=== PATIENT | female | born 1950 | race Caucasian/White ===

== ENCOUNTER → 2018-10-01 | Outpatient (CLI) | payer MEDICARE, OTHER ==
[2018-10-01 16:40] LABS: Blood Urea Nitrogen 12 mg/dL (7-17)
--- NOTE | 2018-10-02 03:13 | CT ---
EXAMINATION TYPE: CT angio chest DATE OF EXAM: 10/01/2018 COMPARISON: NONE HISTORY: aortic aneurysm CT DLP: 180.1 mGycm. Automated Exposure Control for Dose Reduction was Utilized. CONTRAST: CTA scan of the thorax is performed with IV Contrast, patient injected with 100 mL of Isovue 370, pul monary embolism protocol. 3-D reconstructed Images are created on independent workstation and reviewe d. FINDINGS: LUNGS: Background Moderate emphysematous changes present most prominent in the lung apices. There is 2.2 x 1.7 cm focus of groundglass opacity anterior inferior right upper lobe axial image 26. Correlat e clinically for possible focal pneumonia. There is slightly elevated left hemidiaphragm with left ba silar linear scarring and/or atelectasis. No pleural effusion or pneumothorax is seen bilaterally. MEDIASTINUM: Ascending aorta measures up to 3.8 cm near level of pulmonary bifurcation axial image 25 . There is normal 3 vessel origin from the aortic arch. Descending thoracic aorta measures 3.1 cm tra nsversely X image 19 with gradual tapering. There is mild peripheral plaque in the arch and descendin g aorta.. There are no greater than 1 cm hilar or mediastinal lymph nodes. No or pericardial effus ion is seen. Heart size is mildly enlarged. Left ventricle is mildly dilated. OTHER: There is partial visualization of bilateral renal calculi measuring nearly up to 1 cm in size. IMPRESSION: Ascending aortic aneurysm up to 3.8 cm. Other findings as noted above.
== END ==
LOC: RADCTMAIN 15:48
PROVIDERS: ATTEND Internal Medicine Cardiovascular Disease
DX: I71.2 Thoracic aortic aneurysm, without rupture (principal); Z88.1 Allergy status to other antibiotic agents; Z88.5 Allergy status to narcotic agent; Z88.8 Allergy status to other drugs, medicaments and biological substances
CPT/HCPCS: 82565; 84520; 71275; 36415; Q9967

== ENCOUNTER → 2019-03-20 | Outpatient (CLI) | payer MEDICARE, OTHER ==
--- NOTE | 2019-03-20 15:54 | XR ---
EXAMINATION TYPE: XR KUB DATE OF EXAM: 03/20/2019 2:43 PM CLINICAL HISTORY: Right lower quadrant and flank pain. TECHNIQUE: Single supine KUB image of the abdomen is obtained. COMPARISON: None. FINDINGS: No dilated large or small bowel seen. Gaseous distention of small bowel measures up to 2.5 cm, within normal limits. Right renal calculi are seen measuring up to 8 mm. There are approximately 6 right renal calculi. Left renal shadow is obscured by stool. Surgical sutures are seen in the left hemipelvis. Mild levoscoliosis of the lumbar spine and moderate degenerative changes of the osseous s tructures are seen. IMPRESSION: Right-sided nephrolithiasis with at least 6 calculi measuring up to 8 mm. Left renal shad ow is obscured by bowel gas and stool. No suspicious calculi along the courses of the ureters.
== END | disposition home or self-care (01) ==
LOC: RADXRMAIN 14:29
PROVIDERS: ATTEND Urology
DX: N20.0 Calculus of kidney (principal)
CPT/HCPCS: 74018

== ENCOUNTER → 2019-05-22 | Outpatient (CLI) | payer MEDICARE, OTHER ==
[2019-05-22 09:23] LABS: African American GFR (CKD) >90 (>60 ml/min/1.73 sqM); Blood Urea Nitrogen 12 mg/dL (7-17)
--- NOTE | 2019-05-22 11:08 | CT ---
EXAMINATION TYPE: CT angio chest DATE OF EXAM: 05/22/2019 COMPARISON: CTA chest October 01, 2018. HISTORY: Follow up aneurysm CT DLP: 177.7 mGycm. Automated Exposure Control for Dose Reduction was Utilized. CONTRAST: CTA scan of the thorax is performed with IV Contrast, patient injected with 100 mL of Isovue 370, pul monary embolism protocol. Three-D reconstructed images are created on a independent workstation and r eviewed. FINDINGS: LUNGS: Mild to moderate underlying emphysematous changes redemonstrated most prominent bilateral uppe r lobes. Focus of groundglass opacity inferior lateral right upper lobe measures 2.2 x 1.9 cm axial i mage 24 shows no significant change from prior study favoring postinflammatory scar given interval st ability. No new nodules or masses. Left lung remains clear. No pleural effusion or pneumothorax. MEDIASTINUM: There is satisfactory enhancement of the pulmonary artery and its branches, there is no CT evidence for pulmonary embolism. Enlarged right and left pulmonary arteries are redemonstrated, CT findings suggesting underlying pulmonary hypertension. For reference right pulmonary artery measures 2.6 cm diameter axial image 27. Adjacent ascending aorta measures up to 3.9 cm in diameter axial elliott ge 26 are significantly changed from prior. Aorta measures similarly 3.9 cm coronal image 12. Descend ing thoracic aorta measures up to 3.1 cm in diameter transversely axial image 19 not significantly ch anged from prior. There are no greater than 1 cm hilar or mediastinal lymph nodes. No pericardial e ffusion is seen. There is actually bovine type arch which is normal variant. Heart size is stable mil dly enlarged. OTHER: Subcentimeter hypodense focus anterior left hepatic lobe axial image 51 reversed thin-walled c yst as it is stable. Right-sided renal calculi are partially imaged on current study. IMPRESSION: Stable (accounting for technical differences) ascending aortic aneurysm up to 3.9 cm on c urrent study.
== END | disposition home or self-care (01) ==
LOC: RADCTMAIN 08:35
PROVIDERS: ATTEND Internal Medicine Cardiovascular Disease
DX: I71.2 Thoracic aortic aneurysm, without rupture (principal)
CPT/HCPCS: 82565; 84520; 71275; 36415; Q9967

== ENCOUNTER → 2019-06-10 | Outpatient (CLI) | payer MEDICARE, OTHER ==
--- NOTE | 2019-06-11 11:33 | XR ---
EXAMINATION TYPE: XR KUB DATE OF EXAM: 06/10/2019 COMPARISON: 03/20/2019 INDICATION: N 20.0, and N20.1 TECHNIQUE: Single view abdomen FINDINGS: There is a normal bowel gas pattern. Psoas margins are normal. No organomegaly is present. There are multiple calcifications overlying the kidneys. The larger on the right measures 0.8 cm. The larger on the left measures 0.4 cm. Postsurgical changes are within the left hemipelvis. IMPRESSION: 1. Bilateral renal calcifications.
== END | disposition home or self-care (01) ==
LOC: RADXRMAIN 17:07
PROVIDERS: ATTEND Urology
DX: N28.89 Other specified disorders of kidney and ureter (principal)
CPT/HCPCS: 74018

== ENCOUNTER → 2021-11-04 | Outpatient (CLI) | payer MEDICARE, OTHER ==
[2021-11-04 12:28] LABS: African American GFR (CKD) >90 (>60 ml/min/1.73 sqM); Blood Urea Nitrogen 12 mg/dL (7-17); Non-African American GFR(CKD) 82 (>60 ml/min/1.73 sqM)
--- NOTE | 2021-11-04 13:51 | CT ---
EXAMINATION TYPE: CT chest w con DATE OF EXAM: 11/04/2021 COMPARISON: HISTORY: Aneurysm, prior scans CT DLP: 368 mGycm Automated exposure control for dose reduction was used. TECHNIQUE: CT scan of the chest is performed with IV Contrast, patient injected with 100ml mL of Isovue 300. PA P Images are created on CT scanner and reviewed. 3D reconstructed images are created on an [employer] workstation and reviewed. FINDINGS: AORTA: There is an ascending thoracic aortic aneurysm with a maximal dimension of 4.6 x 4.5 cm. Exten ds to the aortic arch within the proximal descending thoracic aorta which has a maximal dimension of 3.6 cm. Mild atherosclerotic changes. Origins of the great vessels are patent. LUNGS: Emphysematous changes are seen with no sizable pneumothorax or pleural effusion. There is an i rregular density within the right upper lobe measuring 1.4 cm. Calcified nodule in the left upper lob e measuring 2 mm. MEDIASTINUM: There are no greater than 1 cm hilar or mediastinal lymph nodes. No pericardial effusi on is seen. OTHER: Simple appearing right renal cyst. Hypertrophic and degenerative changes of findings. Hypoden sities within the dome of the liver stable most compatible with a simple cyst. No significant coronar y artery calcification. Heart is mildly enlarged. IMPRESSION: 1. Ascending thoracic aortic aneurysm measuring 4.6 x 4.5 cm and previously reported measuring a maxi mal dimension of 3.9 cm compatible interval increase in size. 2. Irregular nodular density right upper lobe measures 1.4 cm and appears to be reduced in size from prior exam where it measured 2.2 cm in greatest axis. Although this could be postinflammatory or infe ctious would recommend PET scan for further evaluation. 3. COPD.
== END | disposition home or self-care (01) ==
LOC: RADCTMAIN 11:56
PROVIDERS: ATTEND Internal Medicine Cardiovascular Disease
DX: I71.2 Thoracic aortic aneurysm, without rupture (principal); R91.1 Solitary pulmonary nodule; J44.9 Chronic obstructive pulmonary disease, unspecified
CPT/HCPCS: 82565; 84520; 71260; 36415; Q9967

== ENCOUNTER → 2022-03-31 | Outpatient (CLI) | payer MEDICARE, OTHER ==
--- NOTE | 2022-04-03 06:38 | PE ---
EXAMINATION TYPE: PET CT fusion skull to thigh DATE OF EXAM: 03/31/2022 COMPARISON: Most recent CT November 04, 2021 and older CTs back to October 01, 2018 HISTORY: Solitary pulmonary nodule, abnormal CT TECHNIQUE: Following the intravenous administration of 13.3 mCi of F-18 FDG, whole body images are p erformed from the skull base to the midthigh. Images are reviewed on the computer in the coronal, ax ial, and sagittal planes. Reconstructed rotating images are created on independent workstation and r eviewed on the computer. A localization and attenuation correction CT is performed in conjunction w ith the PET scan. Blood glucose level equals 98. SCAN: Initial Scan FINDINGS: SKULL BASE AND NECK: No areas of abnormal hypermetabolic uptake. CHEST, MEDIASTINUM, AND HILAR REGION: Background [id number] underlying emphysematous changes re demonstrated. Persistent anterior right midlung 2.1 x 2.0 cm nodule or nodular consolidation axial im age 81 is ametabolic corresponds to most recent CT, CT is in the past had more focal groundglass opac ity on 2019 CT. No areas of abnormal hypermetabolic uptake. ABDOMEN AND PELVIS: Normal excretion is present. No adrenal masses. OSSEOUS STRUCTURES: No areas of abnormal hypermetabolic uptake. OTHER CT: Redemonstration of ascending aortic aneurysm up to 4.7 cm. Cardiomegaly is redemonstrated. Prominent right pulmonary artery redemonstrated suggesting underlying pulmonary artery hypertension. Bilateral nephrolithiasis noted. Surgical changes sigmoid colon left pelvis. Additional surgical sutu res below this. Uterus surgically absent. IMPRESSION: No abnormal hypermetabolic uptake to suggest malignancy. Area of concern favors postinfla mmatory etiology. Consider continued imaging monitoring with CT and/or PET/CT.
== END | disposition home or self-care (01) ==
LOC: RADPETMAIN 08:21
PROVIDERS: ATTEND Internal Medicine Critical Care Medicine
DX: R91.1 Solitary pulmonary nodule (principal); N20.0 Calculus of kidney
CPT/HCPCS: 78815; A9552

== ENCOUNTER → 2022-09-07 | Outpatient (CLI) | payer MEDICARE, OTHER ==
[2022-09-07 15:15] LABS: African American GFR (CKD) >90 (>60 ml/min/1.73 sqM); Blood Urea Nitrogen 17 mg/dL (7-17); Non-African American GFR(CKD) 89 (>60 ml/min/1.73 sqM)
--- NOTE | 2022-09-07 16:06 | CT ---
EXAMINATION TYPE: CT chest w con CT DLP: 140.30 mGycm, Automated exposure control for dose reduction was used. DATE OF EXAM: 09/07/2022 3:37 PM COMPARISON: CT chest 11/04/2021, PET/CT 03/31/2022, CT chest dating back to 10/01/2018 CLINICAL INDICATION:Female, 71 years old with history of R91.1 lung nodule; TECHNIQUE: Multiple axial images were obtained through the chest. Sagittal and coronal reformats were created for review. Contrast used:100 mL of Isovue 300 with IV Contrast Oral contrast used: none. FINDINGS: LUNGS/ PLEURA: Right upper lung pulmonary nodule measures similarly at 2.0 x 2.1 cm when comparing to 03/31/2022 PET/CT which includes both the groundglass and solid component. The solid component measure s up to 11 mm with a linear fingerlike extension towards the anterior aspect measuring up to 4 mm, pr eviously this fingerlike extension measured 2 mm. Solid component on prior was also felt to be smalle r measuring 9 mm. No airspace consolidation, pneumothorax or pleural effusion. There is mild centrilo bular emphysema changes. AIRWAY: Patent and unremarkable. HEART: Mild enlarged for size. MEDIASTINUM: No gross evidence of adenopathy. VASCULATURE: No aortic aneurysm. ; Thoracic aorta ectasia up to 4.0 cm. There is a 2 vessel aortic a rch. The great vessels are patent. MUSCULOSKELETAL: No acute osseous abnormalities SOFT TISSUES/LYMPH NODES: Unremarkable. LOWER NECK: No significant findings. UPPER ABDOMEN: Right renal cyst. Scattered hepatic cysts. IMPRESSION: Increase in size of the solid component of the right upper lobe pulmonary nodule which is sharp and groundglass opacities when compared to 11/04/2021. This is seen dating back to 10/01/2018 whe re it had more groundglass appearance and less solid component. The solid component appeared on 2021 and appears slightly larger on today's exam. Findings could represent minimally invasive broncho alveolar carcinoma on the first CT on 10/01/2018 with progression to invasive bronchoalveolar carcinoma . This could account for the low PET/CT metabolic activity on prior PET.
== END | disposition home or self-care (01) ==
LOC: RADCTMAIN 13:37
PROVIDERS: ATTEND Internal Medicine Critical Care Medicine
DX: R91.8 Other nonspecific abnormal finding of lung field (principal)
CPT/HCPCS: 82565; 84520; 71260; 36415; Q9967

== ENCOUNTER → 2023-04-09 | Outpatient (CLI) | payer MEDICARE, OTHER ==
[2023-04-09 13:44] LABS: African American GFR (CKD) >90 (>60 ml/min/1.73 sqM); Blood Urea Nitrogen 13 mg/dL (7-17); Non-African American GFR(CKD) 82 (>60 ml/min/1.73 sqM)
--- NOTE | 2023-04-09 14:09 | CT ---
EXAMINATION TYPE: CT chest w con DATE OF EXAM: 04/09/2023 COMPARISON: 09/07/2022 and 05/22/2019 CT chest HISTORY: lung nodule CT DLP: 177.6 mGycm Automated exposure control for dose reduction was used. CONTRAST: CT scan of the chest is performed with IV Contrast, patient injected with 75 mL of Isovue 300. FINDINGS: LUNGS: Predominantly groundglass nodule with small solid component identified within the right upper lobe is unchanged at 1.9 cm versus 2 cm previously. No significant interval change. Probable postinfl ammatory change. No new nodules or masses seen. No evidence for pleural effusion or volume loss. MEDIASTINUM: There are no greater than 1 cm hilar or mediastinal lymph nodes. No pericardial effusi on is seen. Thoracic aorta is of normal caliber. The heart is not enlarged. UPPER ABDOMEN: No significant abnormality appreciated. OTHER: Bilateral partially imaged renal nephrolithiasis. Renal cystic changes evident. Hepatic cysts noted as well left hepatic lobe. IMPRESSION: 1. Essentially stable predominantly groundglass nodule right upper lobe for which post inflammatory p rocess is favored. Continued one-year follow-up advised.
== END | disposition home or self-care (01) ==
LOC: RADCTMAIN 12:50
PROVIDERS: ATTEND Internal Medicine Critical Care Medicine
DX: R91.1 Solitary pulmonary nodule (principal)
CPT/HCPCS: 82565; 84520; 71260; 36415; Q9967

== ENCOUNTER 2023-05-24 10:47 | Day surgery (SDC) | payer MEDICARE, OTHER ==
[~2023-05-24 10:47] MED LIST: LACTATED RINGERS 1,000 ML IV SCH
--- NOTE | 2023-05-24 11:48 | CT ---
EXAMINATION TYPE: CT chest wo con CT DLP: 193 mGycm, Automated exposure control for dose reduction was used. DATE OF EXAM: 05/24/2023 11:37 AM COMPARISON: 04/09/2023 CLINICAL INDICATION:Female, 72 years old with history of Ion Robot Bronchoscopy; [facility], TECHNIQUE: Multiple axial images were obtained through the chest. Sagittal and coronal reformats were created for review. Contrast used: mL of (None if empty) Oral contrast used: (None if empty) FINDINGS: LUNGS/ PLEURA: Right upper lung mixed solid and groundglass nodule is present. No evidence for pneumo thorax or pleural effusion. The nodule measures up to 23 x 19 cm including the surrounding groundglas s. There is mild emphysema changes throughout the lungs. Right middle lobe intrafissural lymph node a long the minor fissure. AIRWAY: Patent and unremarkable. HEART: Size within normal limits. MEDIASTINUM: No gross evidence of adenopathy. VASCULATURE: No aortic aneurysm. MUSCULOSKELETAL: Moderate disc degeneration changes are present throughout the thoracolumbar spine. SOFT TISSUES/LYMPH NODES: Unremarkable. LOWER NECK: No significant findings. UPPER ABDOMEN: Nonobstructing left renal calculi measuring up to 8 x 3 mm and on the right measuring up tor 3 mm. IMPRESSION: 1. Right upper lung mixed solid and groundglass pulmonary nodule. No evidence for pneumothorax or pl eural effusion. 2. Mild emphysema changes. 3. Nonobstructing bilateral renal calculi.
[2023-05-24] MEDS ORDERED: ONDANSETRON 4 MG/2 ML VIAL ONE ×2 (11:52→13:49)
[2023-05-24] MEDS ORDERED: DEXAMETHASONE SOD PHOSPHATE 4 MG/ML 1 ML VIAL IVP ONE (11:55)
[2023-05-24] MEDS ORDERED: ONDANSETRON 4 MG/2 ML VIAL IVP ONE ×2 (11:55→13:54)
[2023-05-24] MEDS ORDERED: SUCCINYLCHOLINE CHLORIDE 200 MG/10 ML VIAL IV ONE (12:05)
[2023-05-24] MEDS ORDERED: NEOSTIGMINE 1 MG/ML 10 ML VIAL ONE (12:05)
[2023-05-24] MEDS ORDERED: hydrALAZINE HCL 20 MG/ML 1 ML VIAL ONE (12:05)
[2023-05-24] MEDS ORDERED: GLYCOPYRROLATE 0.2 MG/ML 2 ML VIAL ONE (12:05)
[2023-05-24] MEDS ORDERED: ROCURONIUM 10 MG/ML (5 ML VIAL) IV ONE (12:05)
[2023-05-24] MEDS ORDERED: LIDOCAINE 2% INJ 20 MG/ML (2 ML VIAL) ONE (12:05)
[2023-05-24] MEDS ORDERED: fentaNYL (PF) 50 MCG/ML 2 ML AMP ONE (12:05)
[2023-05-24] MEDS ORDERED: PROPOFOL 10 MG/ML 20 ML VIAL IV ONE (12:05)
--- NOTE | 2023-05-24 12:54 | P.PCN ---
Date of Procedure: 05/24/23 Operative Findings: Operative Findings: Preoperative Diagnosis: Right upper lobe consolidating mass Postoperative Diagnosis: Right upper lobe consolidating mass Procedure(s) Performed: Flexible bronchoscopy Robotic-assisted bronchoscopy and addition to radial ultrasound evaluation of the pulmonary lesion Robotic-assisted transbronchial needle aspirate, transbronchial biopsies, transbronchial brushing of the right upper lobe nodule in addition to a bronchioloalveolar lavage Anesthesia: BILLY Surgeon: Gene Carlson Estimated Blood Loss (ml): <5 Pathology: other Condition: stable Disposition: same day Operative Findings: A physical exam was performed. Informed consent was obtained from the patient after explaining all the risks (pneumothorax, life threatening bleeding, infection and adverse effects due to medications), benefits and alternatives to the procedure which the patient appeared to understand and so stated. The patient was connected to the monitoring devices. General anesthesia was induced and the patient was intubated by anesthesia. A final timeout was performed and the procedure confirmed by the attending staff bronchoscopist. The bronchoscope was inserted and the airway examined. The flexible bronchoscope was removed and the robotic bronchoscope was inserted. Registration was completed. I next guided the robotic bronchoscope using the navigation system into the right upper lobe anterior segment. Once in proper position, the bronchoscope was frozen. The radial EBUS probe was placed through the bronchoscope and confirmed abnormal u/s images vs normal lung. A needle was placed through the working channel and under fluoroscopic guidance, we sampled the area thought to have the mass twice. We then used a cloud biopsy pattern with ultrasound confirmation for 2 additional passes with the needle. U/S evaluation was then used to reconfirm location. Forceps were next introduced through working channel and extended the appropriate distance and 4 transbronchial biopsies were performed using fluoroscopic guidance. The u/s probe was then reinserted to confirm location. When confirmed this process was repeated for a total of 6 transbronchial biopsies. After reassessment with EBUS, a brush was placed through the extendable working channel for 1 pass with fluoroscopic guidance. U/S evaluation was then used to confirm location. 40ml of saline was then instilled into the area of the lesion. The robotic bronchoscope was removed and the airway inspected with a flexible bronchoscope and 10 ml of effluent from the BAL was collected. The aspirate was bloody and ultimately declotted and based on that, the sample was discarded. Flexible bronchoscope was inserted and regular suctioning was done. At the completion of the procedure, no residual secretions or bloody material within the airway. The bronchoscope was removed. The patient was extubated. FINDINGS: 1.The airways appeared normal 2 Successful navigation, ultrasonographic identification, and biopsies of right upper lobe pulmonary mass like- nodular consolidation 3.The the radial ultrasound view was (Concentric/Eccentric)}. RECOMMENDATIONS: Await pathology and cytology results The referring physician will be alerted to the results when available. The patient was advised to follow up with the referring physician with the biopsy results Patient will be called with results.
[2023-05-24 13:11] VITALS: TEMP 97.2
--- NOTE | 2023-05-24 13:28 | XR ---
EXAMINATION TYPE: XR chest 1V DATE OF EXAM: 05/24/2023 1:16 PM COMPARISON: CT chest 05/24/2023 TECHNIQUE: XR chest 1V Frontal view of the chest. CLINICAL INDICATION:Female, 72 years old with history of post bx; FINDINGS: Lungs/Pleura: Right upper lobe consolidation with left basilar scarring. No pneumothorax. No pleural effusion. Pulmonary vascularity: Unremarkable. Heart/mediastinum: Cardiomediastinal silhouette is unremarkable. Musculoskeletal: No acute osseous pathology. IMPRESSION: Right upper lobe consolidation consistent with biopsied lung nodule with surrounding likely hemorrhag e. No pneumothorax.
[2023-05-24 13:46] VITALS: PULSE 74
--- NOTE | 2023-05-24 13:49 | FL ---
Intraoperative/procedural fluoroscopic services were provided for bronchoscopy. Total fluoroscopy ginette e is 1.01 minutes with a total of 2 submitted images to PACS. Total DAP 2.9548 Gycm2. Please see the operative note for further details.
[2023-05-24 14:04] VITALS: BP 121/60; RESP 20
== END 2023-05-24 14:23 ==
LOC: ORWHC2ENDO 10:47
PROVIDERS: ATTEND Internal Medicine Critical Care Medicine
DX: R91.1 Solitary pulmonary nodule (principal); I10 Essential (primary) hypertension; E78.5 Hyperlipidemia, unspecified; E03.9 Hypothyroidism, unspecified; Z79.899 Other long term (current) drug therapy; Z88.1 Allergy status to other antibiotic agents; Z88.5 Allergy status to narcotic agent; Z79.890 Hormone replacement therapy
CPT/HCPCS: 88305; 87070; 87205; 87116; 87102; 87206; 71045; 71250; 31628; 31629; 31623; 31624; J0330; J0360; J1100; J2710; J2405; J3010; J2704; J2001; S2900; 87496; 87498; 87502; 87529; 87634; 87798; 88341; 88342

== ENCOUNTER → 2023-07-19 | Outpatient (CLI) | payer MEDICARE, OTHER ==
--- NOTE | 2023-07-19 13:41 | XR ---
EXAMINATION TYPE: XR chest 2V DATE OF EXAM: 07/19/2023 1:34 PM CLINICAL INDICATION:Female, 72 years old with history of R07.9 RIGHT UPPER LOBE WEDGE RESECTION; COMPARISON: Chest radiographs from 07/07/2023. TECHNIQUE: XR chest 2V Frontal and lateral views of the chest. FINDINGS: Lungs/Pleura: There is flattening of the diaphragm with increased lucency of the lungs. No evidence o f pneumothorax, pleural effusion or focal consolidation. Pulmonary vascularity: Unremarkable. Heart/mediastinum: Cardiomediastinal silhouette is unremarkable. Musculoskeletal: No acute osseous pathology. IMPRESSION: 1. No acute cardiopulmonary disease process. 2. COPD changes.
== END | disposition home or self-care (01) ==
LOC: RADXRMAIN 13:05
PROVIDERS: ATTEND Thoracic Surgery (Cardiothoracic Vascular Surgery)
DX: J44.9 Chronic obstructive pulmonary disease, unspecified (principal)
CPT/HCPCS: 71046

== ENCOUNTER → 2024-01-10 | Outpatient (CLI) | payer MEDICARE, OTHER ==
[2024-01-10 11:25] LABS: African American GFR (CKD) >90 (>60 ml/min/1.73 sqM); Blood Urea Nitrogen 16 mg/dL (7-17); Non-African American GFR(CKD) 83 (>60 ml/min/1.73 sqM)
--- NOTE | 2024-01-11 14:38 | CT ---
EXAMINATION TYPE: CT chest w con DATE OF EXAM: 01/10/2024 COMPARISON: HISTORY: h/o lung CA f/u, no complaints CT DLP: 386 mGycm, Automated exposure control for dose reduction was used. CONTRAST: Performed injected with 100 mL of Isovue 300. TECHNIQUE: Axial images were obtained at 5 mm thick sections. Reconstructed images are reviewed on [employer] computer in the coronal plane. FINDINGS: Portion of the thyroid visualized is normal. There is a 0.5 cm density within the anterior right midlung. Series 4 image 29. Some streak opacity extends from the hilar region into the right middle lobe. No enlarged mediastinal or hilar adenopathy is evident. The ascending aorta diameter at the level o f the main pulmonary artery is 4.0 cm. The main pulmonary artery diameter at the bifurcation is 3.[address] sections are obtained through the upper abdomen. Abdomen is essentially unremarkable. IMPRESSION: 1. 0.5 cm nodular density right mid lung present previously. 2. Streak opacity in the left perihilar region can be related to radiation treatment. 3. No suspicious change to suggest recurrent lung cancer.
== END | disposition home or self-care (01) ==
LOC: RADCTMAIN 10:38
PROVIDERS: ATTEND Internal Medicine Critical Care Medicine
DX: J98.4 Other disorders of lung (principal); C34.90 Malignant neoplasm of unspecified part of unspecified bronchus or lung; R91.8 Other nonspecific abnormal finding of lung field
CPT/HCPCS: 82565; 84520; 71260; 36415; Q9967

== ENCOUNTER → 2024-07-14 | Outpatient (CLI) | payer MEDICARE ==
[2024-07-14 12:40] LABS: African American GFR (CKD) 86 (>60 ml/min/1.73 sqM); Blood Urea Nitrogen 17 mg/dL (7-17); Non-African American GFR(CKD) 75 (>60 ml/min/1.73 sqM)
--- NOTE | 2024-07-14 13:30 | CT ---
EXAMINATION TYPE: CT chest w con CT DLP: 156.6 mGycm, Automated exposure control for dose reduction was used. DATE OF EXAM: 07/14/2024 12:58 PM COMPARISON: CT chest 01/10/2024, 05/24/2023, 09/07/2022, PET CT 03/31/2022 CLINICAL INDICATION:Female, 73 years old with history of C34.90 LUNG CANCER; [facility], F/U LUNG CA TECHNIQUE: Multiple axial images were obtained through the chest following the administration of 100 cc of Isovue 300. . Coronal and sagittal reformats reviewed. FINDINGS: LUNGS/ PLEURA: No pleural effusion, pneumothorax, or focal consolidation. Scarring identified within the right upper lobe. Mild centrilobular emphysematous changes. Few stable scattered pulmonary nodul es. Examples include an anterior right midlung 5 mm nodule (series 4, image 31) and a left midlung pe ripheral 2 mm pulmonary nodule (series 4, image 29). AIRWAY: Patent and unremarkable.. HEART: The heart is mildly increased in size.. No pericardial effusion. MEDIASTINUM: No gross evidence of adenopathy. VASCULATURE: Bovine aortic arch. Increasing size of aortic root and ascending thoracic aortic aneury sm measuring 4.5 cm, previously 4.1 cm when measured with similar technique. Descending thoracic aort a measures up to 3.0 cm. No filling defect to suggest pulmonary embolism. MUSCULOSKELETAL: No acute osseous abnormalities SOFT TISSUES/LYMPH NODES: Unremarkable. LOWER NECK: No significant findings. UPPER ABDOMEN: Partial visualization of left [id number] hydronephrosis. Right renal 2.0 cm cyst . Nonobstructive right renal 2 mm calculus. IMPRESSION: 1. Few stable pulmonary nodules. No new or larger pulmonary nodules. 2. Increasing size of aortic root and ascending thoracic aortic aneurysm measuring up to 4.5 cm, pre viously 4.1 cm. Consider vascular surgery consultation. 3. Partial visualization of left mild to moderate hydronephrosis. Additional nonobstructive right re nal calculus. Consider CT abdomen and pelvis to assess for possible obstructing calculus. 4. Mild COPD changes. [facility], , 07/14/2024 1:28 PM
== END | disposition home or self-care (01) ==
LOC: RADCTMAIN 12:12
PROVIDERS: ATTEND Internal Medicine Critical Care Medicine
CPT/HCPCS: 36415; 71260; 82565; 84520

== ENCOUNTER → 2025-01-19 | Outpatient (CLI) | payer MEDICARE, OTHER ==
[2025-01-19 12:36] LABS: African American GFR (CKD) 90 (>60 ml/min/1.73 sqM); Blood Urea Nitrogen 14 mg/dL (7-17); Non-African American GFR(CKD) 78 (>60 ml/min/1.73 sqM)
--- NOTE | 2025-01-19 13:43 | CT ---
EXAMINATION TYPE: CT chest w con CT DLP: 340 mGycm, Automated exposure control for dose reduction was used. 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 . Coronal and sagittal reformats reviewed. FINDINGS: LUNGS/ PLEURA: No pleural effusion, pneumothorax, or focal consolidation. Scarring redemonstrated wit hin the right upper lobe. Mild centrilobular emphysematous changes. Few stable scattered pulmonary n odules. Examples include an anterior right midlung 5 mm nodule (series 4, image 29) and a left calcif ied midlung peripheral 2 mm pulmonary nodule (series 4, image 28). No new or enlarging pulmonary nodu les. AIRWAY: Patent and unremarkable.. HEART: The heart is mildly increased in size.. No pericardial effusion. No significant coronary arter ial calcifications. MEDIASTINUM: No evidence of adenopathy. VASCULATURE: Bovine aortic arch. Stable aortic root and ascending thoracic aortic aneurysm measuring 4.5 cm when measured with similar technique. Descending thoracic aorta measures up to 3.0 cm. Mild a therosclerotic calcification of the aorta and its branches. MUSCULOSKELETAL: No acute osseous abnormalities SOFT TISSUES/LYMPH NODES: Unremarkable. LOWER NECK: No significant findings. UPPER ABDOMEN: Stable right renal 2.0 cm cyst. No follow-up recommended. Nonobstructive right renal 3 mm calculus demonstrated. Tiny low hiatal hernia suggested. Anterior left hepatic lobe stable 1.2 cm cyst. IMPRESSION: 1. Few stable pulmonary nodules. No new or enlarging pulmonary nodules. 2. Stable aortic root and ascending thoracic aortic aneurysm measuring up to 4.5 cm when measured wi th similar technique. 3. Nonobstructing right renal calculus. 4. Mild COPD changes. [facility], , 01/19/2025 1:41 PM
== END | disposition home or self-care (01) ==
LOC: RADCTMAIN 11:23
PROVIDERS: ATTEND Internal Medicine Critical Care Medicine
DX: C34.90 Malignant neoplasm of unspecified part of unspecified bronchus or lung (principal); R91.8 Other nonspecific abnormal finding of lung field; I71.21 Aneurysm of the ascending aorta, without rupture; N20.0 Calculus of kidney; J44.9 Chronic obstructive pulmonary disease, unspecified
CPT/HCPCS: 82565; 84520; 71260; 36415; Q9967